=== PATIENT | male | born 1955 | race Caucasian/White ===

== ENCOUNTER 2016-08-30 09:43 | Emergency (ER) ==
[2016-08-30 10:43] LABS: HEMATOCRIT 18.4 % (42.0-52.0); MANUAL DIFF NEEDED? YES; MCH 21.8 PG (27-31); MCHC 28.3 g/dL (33-37); MPV 7.9 FL (7.4-10.4); PLT 855 X1000 (130-400); RBC 2.39 XMIL (4.7-6.1)
--- NOTE | 2016-08-30 10:44 | PROVIDER DOCUMENTATION ---
HPI-General Adult - General Source: patient - History of Present Illness -Gen Adult Nature of Presenting Problems: Pt is 61 y/o M presents to the ED with abnormal labs. Pt state PCP's PA sent him to ED for blood transfusion. Pt states having 6 units transfused before May. Pt states intermittent black tarry stools. Pt states getting iron infusions every 3 months. Pt denies F. Location of Pain/Injury: reports: none Pain Radiation: reports: no radiation Quality of Pain: reports: none Onset/Duration: reports: just prior to arrival Timing: reports: still present Context/Activities at Onset: reports: light activity Modifying Factors: improves with: nothing Associated Symptoms: reports: denies symptoms Similar Symptoms Previously?: Yes Recently seen or treated by another doctor?: Yes <Patito Howard - Last Filed: 08/30/16 11:27> <Say Payton - Last Filed: 08/30/16 11:29> - General Chief Complaint: Abnormal Lab[s] Stated Complaint: ABNORMAL LAB[S] Time Seen by Provider: 08/30/16 10:40 Allergies/Adverse Reactions: Patient Allergies Allergy/AdvReac Type Severity Reaction Status Date / Time No Known Allergies Allergy Verified 05/02/16 10:02 Home Medications: Home Medication List Medication Instructions Recorded Confirmed Last Taken Type ROSUVAstatin [Crestor] 20 mg PO DAILY 07/22/12 05/13/16 05/11/16 History Metoprolol [Lopressor] 12.5 mg PO DAILY #0 05/14/16 05/13/16 05/09/16 Rx Review of Systems - Adult - REVIEW OF SYSTEMS - ADULT Constitutional: reports: no symptoms reported Eyes: reports: no symptoms reported Ears, Nose, Mouth & Throat: reports: no symptoms reported Cardiovascular: reports: no symptoms reported Respiratory: reports: no symptoms reported Gastrointestinal: reports: no symptoms reported Genitourinary: reports: no symptoms reported Musculoskeletal: reports: no symptoms reported Integumentary: reports: no symptoms reported Neurological: reports: no symptoms reported Psychiatric: reports: no symptoms reported Endocrine: reports: no symptoms reported Hematologic/Lymphatic: reports: no symptoms reported Allergic/Immunologic: reports: no symptoms reported All Other Systems: Reviewed and Negative <Patito Howard - Last Filed: 08/30/16 11:27> Past History - Adult - PAST MEDICAL HISTORY-ADULT Review of Records: reports: Nursing Assessment Review, Medications Reviewed, Social history reviewed & non-contributory. Major Childhood Illnesses: reports: denies history Cardiovascular: reports: HTN Respiratory: reports: COPD Gastrointestinal: reports: denies history Obstetrical/Gynecological: reports: denies history Genitourinary: reports: denies history Musculoskeletal: reports: denies history Neurological: reports: denies history Endocrine/Immune: reports: denies history Other Conditions: reports: denies history - PRIOR SURGERIES/PROCEDURES Surgical/Procedure History: reports: reviewed, not pertinent - IMMUNIZATION STATUS Childhood Immunizations: See Nurse Assessment Flu Vaccine: See Nurse Assessment - FAMILY HISTORY Family History: reviewed, not pertinent - SOCIAL HISTORY Smoking: quit greater than 1 year, cigarettes Substance Use: alcohol Alcohol Use Frequency: occasionally Number of drinks per typical drinking period:: 2 drinks Living Situation: family <Patito Howard - Last Filed: 08/30/16 11:27> Physical Exam-General - PHYSICAL EXAM-ADULT Initial Vital Signs Reviewed: Yes - CONSTITUTIONAL General Appearance: appears well, alert, no apparent distress - EYES Eyes: PERRL/EOMI, pink conjunctivae, fundi clear, no AV nicking - HEAD, EARS, NOSE, MOUTH & THROAT HENMT: normocephalic/atraumatic, moist mucous membranes, normal ENT inspection, TMs normal, pharynx normal - NECK Neck: non-tender, full range of motion, supple, normal inspection - RESPIRATORY Respiratory: chest non-tender, lungs clear, normal breath sounds, no pleuratic chest pain, no respiratory distress, no accessory muscle use - CARDIOVASCULAR Cardiovascular: normal peripheral pulses, no edema, no gallop, no JVD, no murmur , tachycardia - GASTROINTESTINAL (ABDOMEN) Abdominal Exam: normal bowel sounds, non tender, soft, no organomegaly, no pulsatile mass - LYMPHATIC Lymphatic: no adenopathy - MUSCULOSKELETAL Back Exam: normal inspection, no CVA tenderness, no vertebral tenderness Extremity: normal range of motion, non-tender, normal gait, normal inspection, no pedal edema, no calf tenderness, normal capillary refill - SKIN Integumentary: normal color, normal turgor, warm/dry - NEUROLOGIC Neurologic: grossly normal - PSYCHIATRIC Psych/Mental Status: normal mood/affect, oriented x 3 <Patito Howard - Last Filed: 08/30/16 11:27> Progress - PLAN OF CARE/RESULTS Progress/Plan/Lab Results: Laboratory Tests 08/30/16 10:18 WBC 6.28 RBC 2.39 L Hct 18.4 L MCV 77.0 L MCH 21.8 L MCHC 28.3 L RDW Std Deviation 18.9 H Plt Count 855 H MPV 7.9 Neut % (Auto) Not Reportable Lymph % (Auto) Not Reportable [place] % (Auto) Not Reportable Eos % (Auto) Not Reportable Baso % (Auto) Not Reportable Neut # (Auto) Not Reportable Lymph # (Auto) Not Reportable [place] # (Auto) Not Reportable Eos # (Auto) Not Reportable Baso # (Auto) Not Reportable Orders Category Date Time Status CBC WITH DIFF [HEME] Stat Lab 08/30/16 10:18 Results TYPE & SCREEN [BBK] Stat Lab 08/30/16 10:18 Received Vital Signs - 24 hr 08/30/16 10:00 Temperature 97.9 F Pulse Rate 93 H Respiratory 18 Rate Blood Pressure 127/66 O2 Sat by Pulse 100 Oximetry Laboratory Tests 08/30/16 08/30/16 10:18 10:18 WBC 6.28 RBC 2.39 L Hct 18.4 L MCV 77.0 L MCH 21.8 L MCHC 28.3 L RDW Std Deviation 18.9 H Plt Count 855 H MPV 7.9 Neut % (Auto) Not Reportable Lymph % (Auto) Not Reportable [place] % (Auto) Not Reportable Eos % (Auto) Not Reportable Baso % (Auto) Not Reportable Neut # (Auto) Not Reportable Lymph # (Auto) Not Reportable [place] # (Auto) Not Reportable Eos # (Auto) Not Reportable Baso # (Auto) Not Reportable Blood Type O POSITIVE Antibody Screen NEGATIVE <Patito Howard - Last Filed: 08/30/16 11:27> Departure <Patito Howard - Last Filed: 08/30/16 11:27> - Departure Time of Disposition Order: 11:28 Certified Medical Emergency: Emergent <Say Payton - Last Filed: 08/30/16 11:29> - Departure DIAGNOSIS: Anemia Qualifiers: Anemia type: iron deficiency Iron deficiency anemia type: chronic blood loss Qualified Code(s): D50.0 - Iron deficiency anemia secondary to blood loss ( chronic) Disposition: HOME 01 Condition: Stable Additional Instructions: go to transfusion center now ED Follow Up Instructions: You have been treated by a care provider in the Emergency Department. These instructions are being provided to you so you can have an understanding of how to care for yourself upon discharge. Upon discharge from the Emergency Department, you are responsible for making arrangements for follow-up care by a physician of your choice. Take all prescribed medications as directed. Return to the Emergency Department immediately for any new or worsening symptoms. You may call the Physician Referral phone number at [phone] to obtain a list of Physicians who are taking new patients. Referrals: Stephan Rosa MD [Primary Care Provider] - Attestation - Scribe Verification/Attestation Scribe:: Patito Howard Acting as Scribe for:: Say Payton Scribe documention review:: This chart was documented by a scribe and accurately reflects the service the provider performed and the decisions made by the provider. <Patito Howard - Last Filed: 08/30/16 11:27> Physician Attestation
[2016-08-30 11:46] VITALS: BP 119/61
[2016-08-30 13:08] LABS: EOS 1 % (1-10); HYPOCHROM 2+; LYMPHS 22 % (21-51); MONO 9 % (1-9); NRBC 4 % (0-0)
[2016-08-30 14:33] LABS: HEMOGLOBIN 5.2 g/dL (14.0-18.0)
== END 2016-08-30 11:58 | disposition home or self-care (01) ==
LOC: P.ED 09:43
DX: D50.0 Iron deficiency anemia secondary to blood loss (chronic) (principal); R19.5 Other fecal abnormalities; I10 Essential (primary) hypertension; J44.9 Chronic obstructive pulmonary disease, unspecified; Z87.891 Personal history of nicotine dependence; E78.5 Hyperlipidemia, unspecified; Z51.81 Encounter for therapeutic drug level monitoring; Z79.899 Other long term (current) drug therapy
CPT/HCPCS: 80061; 80076; 85014; 85018; 85025; 86850; 86900; 86901; 86920; 99283; J7040; P9016